=== PATIENT | female | born 1965 | race Caucasian/White ===

== ENCOUNTER → 2016-10-28 | Outpatient (CLI) | payer BC ==
[~2016-10-28] MED LIST: ADDERALL XR 3030 MG PO; CYCLOBENZAPRINE5 M3 PO; CYMBALTA20 MG PO; CYMBALTA30 MG PO; DAYPRO600 M1 PO; HYDROCODONE BIT1 T11 PO; MIRAPEX1 MG PO; Motrin,Rufen800 MG PO; PREDNICOT20 MG PO; PRILOSEC20 M1 PO; TESSALON PERLE200 MG PO; VICO75300 PO; ZITHROMAX Z PA250 MG PO
[2016-10-28 09:22] LABS: BASO # 0.1 10*3/uL (0.0-0.1); BASO % 0.8 % (0.0-1.0); EOS # 0.2 10*3/uL (0.0-0.4); EOS % 2.2 % (1.0-4.0); HEMATOCRIT 37.2 % (37.0-47.0); HEMOGLOBIN 12.2 g/dl (12.0-16.0); LYMPH # 2.2 10*3/uL (1.3-4.4); LYMPH % 23.7 % (27.0-41.0); MEAN CELL VOLUME 89.2 fl (81.0-99.0); MEAN CORPUSCULAR HGB 29.3 pg (27.0-31.0); MEAN CORPUSCULAR HGB CONC 32.8 g/dl (33.0-37.0); MEAN PLATELET VOLUME 9.6 fl (9.6-12.3); MONO # 0.5 10*3/uL (0.1-1.0); MONO % 5.6 % (3.0-9.0); NEUT # 6.1 10*3/uL (2.3-7.9); NEUT % 67.5 % (47.0-73.0); PLATELET COUNT AUTOMATED 302 10*3/uL (130-400); RED BLOOD COUNT 4.17 10*6/uL (4.10-5.10); RED CELL DISTRI WIDTH 14.6 % (0-14.5); WHITE BLOOD COUNT 9.1 10*3/uL (4.8-10.8)
== END | disposition home or self-care (01) ==
LOC: LAB 07:57
PROVIDERS: Obstetrics & Gynecology
DX: N83.209 Unspecified ovarian cyst, unspecified side (principal)

== ENCOUNTER → 2016-11-03 | Day surgery (SDC) | payer BC ==
[2016-10-28 08:10] VITALS: BP 125/74
[~2016-11-03] VITALS: Ht 160 cm; Wt 97.5 kg
[2016-11-03] VITALS (10 sets, daily range): BP systolic 104–154; BP diastolic 46–87
[~2016-11-03] MED LIST changes: +PERCOCET 325 MG1 TA2 PO
--- NOTE | ~2016-11-03 | O ---
[place], [place] OPERATIVE NOTE NAME: AARON CRAMER UNIT #: [id number] ROOM: DOCTOR: JAIRO JOE MD BIRTHDATE: [birth year] DOS: 11/03/2016 PREOPERATIVE DIAGNOSES: Left lower quadrant pain, small left ovarian cyst per ultrasound and strong family history of breast cancer and ovarian cancer. The patient also had recommended by ca prophylactic BSO while we were in performing this laparoscopy, but she did not want to proceed with this procedure. POSTOPERATIVE DIAGNOSES: Left lower quadrant pain, small left ovarian cyst per ultrasound and strong family history of breast cancer and ovarian cancer. The patient also had recommended by me prophylactic BSO while we were in performing this laparoscopy, but she did not want to proceed with this procedure with a normal pelvis noted, no significant left ovarian cyst noted at all, no other atypicalities noted. OPERATION: The operation itself was diagnostic laparoscopy. SURGEON: Dr. Jairo Johns. ANESTHESIA: General. ESTIMATED BLOOD LOSS: Minimal. REPLACEMENTS: IV fluids and Toradol. COMPLICATIONS: There were no complications. CONDITION: The patient's condition to recovery stable. OPERATIVE SUMMARY: The patient was taken to the operating room in supine position, general anesthesia, endotracheal intubation, lithotomy position, prepped and draped in routine manner. Jones catheter was placed to straight drain. The cervix was grasped with tenaculum and a cervical manipulator placed. Infraumbilical and suprapubic incisions were made after placing a 5 mm trocar sleeve and laparoscope through the infraumbilical incision, under direct visualization, we proceeded with CO2 insufflation. Once this was completed, we placed another 5 mm trocar and sleeve through the suprapubic incision and probed. Systematic examination of the pelvis revealed the anterior cul-de-sac to be normal. The uterus itself was overall normal in size, configuration, and mobility. The posterior cul-de-sac and all supporting structures in the posterior cul-de-sac were normal. The tubes and ovaries were completely normal, free and mobile with evidence of previous bilateral tubal banding. There was no demonstrable left ovarian cyst. The appendix was visualized as was a partial visualization of the liver. The gallbladder itself was not visualized. The overall view of the ascending and descending colon was normal. There were no atypicalities appreciated anywhere. Once the survey was completed, the suprapubic trocar and trocar sleeve and probe were removed and noting no excessive anterior abdominal bleeding. CO2 was allowed to escape, followed by removal of the infraumbilical trocar sleeve and laparoscope. Each incision was closed with subcuticular Monocryl as well as Steri-Strips and dressings placed. The catheter was removed, urine output throughout the case was clear and about [place], [place] OPERATIVE NOTE NAME: CHIKIS CastellanosA UNIT #: [id number] ROOM: DOCTOR: JAIRO JOE MD BIRTHDATE: [birth year] 200 mL. We then removed the cervical manipulator and the tenaculum. Noting no significant vaginal bleeding the patient was cleaned off, taken out of lithotomy position, awakened, extubated, and transferred to recovery in satisfactory condition with stable vital signs, good hemostasis, and stable sponge and instrument count. JAIRO JOE MD CM:OPRECORD:OPERATIVE NOTE [id number] JAIRO JOE MD 11/03/16 1029 interface
--- NOTE | ~2016-11-03 | WRIGHTHP ---
[place], [place] PATIENT HISTORY AND PHYSICAL EXAM NAME: AARON CRAMER [facility] #: [id number] UNIT #: [id number] ROOM: DOCTOR: JAIRO JOE MD BIRTHDATE: [birth year] DOS: 11/03/2016 DATE OF SURGERY: 11/03/2016 HISTORY OF PRESENT ILLNESS: This patient is an interesting 51-year-old white female, 5, para 2, AB 3 who presented on 10/15/2016 complaining of pain in the left side in her left lower quadrant and in her groin area. She had had an ultrasound done per Dr. Kuhn and the ultrasound did not reveal any atypicalities. The patient did reveal small left ovarian cyst and that was the only finding. The patient had her last menstrual period in December 2015 and is having some hot flashes during the day, but not much at night. The patient also has fibromyalgia, chronic fatigue syndrome. She has a family history interesting in a sister and daughter both breast cancer and maternal aunt with ovarian cancer. There is no known BRCA testing have been completed, but the pattern was very suspicious as we discussed. She also has a history of kidney stones, but her primary complaint on the day of the visit was left lower quadrant pain. She feels it is getting worse, accentuated by her efforts to exercise, increased activity, etc. Her PUF questionnaire was only 9 as well. To that end, I reviewed with the patient the risks and benefits, indications, potential complications and alternatives of diagnostic laparoscopy. She did state understanding and signed a consent. However, we also discussed her family history and based on her age factor, she is having menopausal symptoms, etc. I did suggest that regardless of intraoperative findings, bilateral salpingo-oophorectomy might well be performed for prophylaxis at least against ovarian cancer. The patient stated her understanding to this information and signed a consent. She has since contacted the office on several occasions inquiring about hysterectomy and then debating back and forth in regard to bilateral salpingo-oophorectomy. The patient was offered an appointment and appointment upon was actually made on October 29, but the patient did not show for the appointment. At this time, diagnostic laparoscopy and possible bilateral salpingo-oophorectomy were recommended what are signed for and scheduled for and we will proceed accordingly on November 03. PAST MEDICAL HISTORY: Reveals a history of trouble concentrating for which she takes Adderall 30 mg daily, restless legs syndrome, takes Mirapex daily. She has pain from these issues and uses Vicodin 7.5/300 one tablet daily as needed. She also has acid reflux and takes Prilosec daily. The patient has had 2 vaginal deliveries. She has had a negative colonoscopy in 2017. She has had 3 miscarriages. She has had a tubal ligation, history of kidney stones as I mentioned. SOCIAL HISTORY: She does not smoke or drink. REVIEW OF SYSTEMS: Otherwise stable. FAMILY HISTORY: Reveals father from heart disease and cancer, but she does not know what type of cancer. Mother is with diagnosis of diabetes, hypertension, heart disease. The patient's mother also had kidney failure. The patient does have a family history as I mentioned above of uterine and breast cancer. She states that her sister also had cervical cancer as well. [place], [place] PATIENT HISTORY AND PHYSICAL EXAM NAME: AARON CRAMER UNIT #: [id number] ROOM: DOCTOR: JAIRO JOE MD BIRTHDATE: [birth year] PHYSICAL EXAMINATION: GENERAL: Reveals a pleasant white female. VITAL SIGNS: She is 5 feet 3 inches, 219 pounds, BMI is 39. Blood pressure 116/80 and she is in no apparent distress. HEENT: Within normal limits. NECK: Within normal limits. LUNGS: Within normal limits. CARDIAC: Within normal limits. BREASTS: Within normal limits. ABDOMEN: Within normal limits. EXTREMITIES: Grossly intact. NEUROLOGIC: Grossly intact. GENITOURINARY: External genitalia, vagina and cervix are all normal. No laxity is noted vaginally. Uterus is anteverted and anteflexed, normal size, configuration, nontender, and mobile. The bladder is slightly tender to palpation. The adnexa were negative for any significant mass, but BMI precludes an adequate pelvic exam. The patient does have a tender left anterior iliac crest to palpation. There is no history of hip or pelvic bone abnormalities. RECTAL: Negative. Stool heme test negative. ASSESSMENT: The patient with chronic left adnexal pain, a small left ovarian cyst and positive family history for breast cancer as well as ovarian and cervical disease. To that end, the patient will undergo diagnostic laparoscopy, possible bilateral salpingo-oophorectomy on 11/03/2016. Once this evaluation is complete, we will then consider a KCl challenge test in the office. The patient stated understanding to this information and will undergo the surgery on 11/03/2016. JAIRO JOE MD CM:HISPHYS:PATIENT HISTORY AND PHYSICAL EXAMINATION [id number] JAIRO JOE MD 10/29/16 2318 interface
== END | disposition home or self-care (01) ==
LOC: SDC 10-27 12:30
DX: R10.32 Left lower quadrant pain (principal); K21.9 Gastro-esophageal reflux disease without esophagitis; Z80.3 Family history of malignant neoplasm of breast; Z80.41 Family history of malignant neoplasm of ovary; Z82.49 Family history of ischemic heart disease and other diseases of the circulatory system; Z83.3 Family history of diabetes mellitus; F32.9 Major depressive disorder, single episode, unspecified; Z98.51 Tubal ligation status; Z79.899 Other long term (current) drug therapy; Z87.891 Personal history of nicotine dependence

== ENCOUNTER 2017-03-03 19:04 | Inpatient (IN) | payer BC ==
[2017-03-03] VITALS (7 sets, daily range): BP systolic 84–132; BP diastolic 45–71
[~2017-03-03] VITALS: Ht 160 cm; Wt 99.0 kg
[2017-03-03 19:54] LABS: BASO # 0.1 10*3/uL (0.0-0.1); BASO % 0.5 % (0.0-1.0); EOS # 0.2 10*3/uL (0.0-0.4); EOS % 1.7 % (1.0-4.0); HEMATOCRIT 38.2 % (37.0-47.0); HEMOGLOBIN 12.6 g/dl (12.0-16.0); LYMPH # 1.9 10*3/uL (1.3-4.4); MEAN CELL VOLUME 86.6 fl (81.0-99.0); MEAN CORPUSCULAR HGB 28.6 pg (27.0-31.0); MEAN PLATELET VOLUME 9.7 fl (9.6-12.3); MONO # 0.4 10*3/uL (0.1-1.0); MONO % 3.8 % (3.0-9.0); NEUT # 8.5 10*3/uL (2.3-7.9); NEUT % 76.5 % (47.0-73.0); PLATELET COUNT AUTOMATED 338 10*3/uL (130-400); RED BLOOD COUNT 4.41 10*6/uL (4.10-5.10); RED CELL DISTRI WIDTH 14.6 % (0-14.5); WHITE BLOOD COUNT 11.1 10*3/uL (4.8-10.8)
--- NOTE | 2017-03-03 19:57 | NUR ---
LAB REPORTS LACTIC ACID OF 2.9 AT THIS TIME.
[2017-03-03 20:07] LABS: ALBUMIN 2.8 gm/dl (3.1-4.5); CREATININE 1.19 mg/dL (0.55-1.02); POTASSIUM 3.5 mmol/L (3.5-5.1); TOTAL PROTEIN 7.9 gm/dL (6.4-8.2)
[2017-03-03 20:11] LABS: BILIRUBIN NEGATIVE (NEGATIVE); BLOOD 3+ (NEGATIVE); CLARITY CLOUDY (CLEAR); COLOR YELLOW (YELLOW); GLUCOSE NEGATIVE (NEGATIVE); KETONE NEGATIVE (NEGATIVE); LEUKO ESTERASE 1+ (NEGATIVE); NITRITE NEGATIVE (NEGATIVE); PH 5.5 (5.0-9.0)
[2017-03-03 20:24] LABS: BACTERIA 1+; EPITHELIAL CELLS 30-35; RBC TNTC rbc/hpf (0-2); WBC 21-30 wbc/hpf (0-5)
--- NOTE | 2017-03-03 22:02 | NUR ---
PT STATES HER PAIN IN RELIEVED FROM TORADOL.
--- NOTE | 2017-03-03 22:11 | NUR ---
LAB CALLED WITH CRITICAL LACTIC ACID OF 2.8. PHYSICIAN AWARE.
--- NOTE | 2017-03-03 23:05 | NUR ---
A 51, admitted to 5E, under the services of NITIN Banks DO with a diagnosis of UTI. Chief complaint is URINARY SYMPTOMS. Patient arrived via ambulatory from ER. Monitor applied. Initial assessment completed. Vital signs taken and recorded. NITIN BANKS DO notified of admission to the unit. Orders received. See assessment for past medical history, medications and allergies. Patient and/or family oriented to unit. visitation policy reviewed. Clothing/patient valuable form completed. LEXIE BERMEO L
--- NOTE | 2017-03-03 23:10 | NUR ---
NOTIFIED DR. JALLOH AT THIS TIME OF PTS. CRITICAL TROPONIN LEVEL OF 0.049. WE WILL CONTINUE TO MONITOR, NO NEW ORDERS AT THIS TIME.
--- NOTE | 2017-03-03 23:11 | NUR ---
HERE TO SEE PATIENT.
[2017-03-03] MEDS ORDERED: CYCLOBENZAPRINE10 MG PO (23:27)
[2017-03-03] MEDS ORDERED: VICODIN ES 7.51 EACH PO (23:29)
--- NOTE | 2017-03-03 23:35 | NUR ---
MED REC UP TO DATE PER PT RECALL
[2017-03-03] MEDS ORDERED: NORCO 7.5-3251 EACH PO (23:43)
[2017-03-03] MEDS ORDERED: SEPTDS PO (23:44)
[2017-03-03] MEDS ORDERED: ATIVAN1 MG PO (23:45)
[2017-03-03] MEDS ORDERED: FLOMAX0.4 MG PO (23:47)
[2017-03-03] MEDS ORDERED: PREDNISONE20 M1 PO (23:49)
--- NOTE | 2017-03-03 23:50 | NUR ---
PATIENT HAD PRESCRIPTION BOTTLES IN [facility]. MED REC UPDATED TO INCLUDE THOSE HOME MEDS.
[2017-03-04] VITALS (7 sets, daily range): BP systolic 93–124; BP diastolic 50–66
--- NOTE | 2017-03-04 00:15 | NUR ---
HERE AT THIS TIME. VERIFIED PATIENT'S HOME SUPPLY OF MIRAPEX IN UNMARKED CONTAINER. INSTRUCTED TO GIVE ONE DOSE (1 TABLET) OF PATIENT'S HOME MIRAPEX BECAUSE MEDICATION IS UNAVAILABLE FROM PHARMACY AT THIS TIME.
--- NOTE | 2017-03-04 00:19 | NUR ---
PO MIRAPEX ADMINISTERED AT THIS TIME PER DR. JALLOH'S ORDERS.
[2017-03-04 04:46] LABS: BASO # 0.1 10*3/uL (0.0-0.1); BASO % 0.4 % (0.0-1.0); EOS # 0.3 10*3/uL (0.0-0.4); EOS % 1.8 % (1.0-4.0); LYMPH # 3.4 10*3/uL (1.3-4.4); LYMPH % 24.8 % (27.0-41.0); MEAN CELL VOLUME 88.4 fl (81.0-99.0); MEAN CORPUSCULAR HGB 28.9 pg (27.0-31.0); MEAN CORPUSCULAR HGB CONC 32.7 g/dl (33.0-37.0); MEAN PLATELET VOLUME 9.6 fl (9.6-12.3); MONO % 7.2 % (3.0-9.0); NEUT # 8.9 10*3/uL (2.3-7.9); NEUT % 65.4 % (47.0-73.0); PLATELET COUNT AUTOMATED 291 10*3/uL (130-400); RED BLOOD COUNT 3.53 10*6/uL (4.10-5.10); RED CELL DISTRI WIDTH 14.8 % (0-14.5); WHITE BLOOD COUNT 13.5 10*3/uL (4.8-10.8)
[2017-03-04 04:47] LABS: HEMATOCRIT 31.2 % (37.0-47.0); HEMOGLOBIN 10.2 g/dl (12.0-16.0)
[2017-03-04 04:57] LABS: BUN 14 mg/dl (7-24); CHLORIDE 110 mmol/L (98-107); CREATININE 0.86 mg/dL (0.55-1.02); POTASSIUM 3.5 mmol/L (3.5-5.1); SODIUM 141 mmol/L (136-145)
[2017-03-04 05:03] LABS: PHOSPHOROUS 3.4 mg/dL (2.5-4.9)
--- NOTE | 2017-03-04 05:19 | NUR ---
SPOKE TO REGARDING PATIENT'S COMPLAINTS OF HEARTBURN. NEW ORDER RECEIVED.
--- NOTE | 2017-03-04 05:35 | NUR ---
PO TYLENOL AND CHEWABLE TUMS ADMINISTERED PER ORDER FOR C/O HEADACHE AND HEARTBURN. WILL MONITOR EFFECTIVENESS. CALL LIGHT LEFT IN REACH.
--- NOTE | 2017-03-04 08:20 | NUR ---
MEDICATED WITH NORCO FOR HEADACHE SHE RATES A 6 ON THE PAIN SCALE.
--- NOTE | 2017-03-04 08:32 | NUR ---
PATIENT RESTING WITH NO COMPLAINTS.
--- NOTE | 2017-03-04 09:00 | NUR ---
It Coordinator in to talk to patient. Patient states lives at home with . There are few steps in the home. Physician: keely melton Pharmacy: [facility] Home health services: none Patient's level of ADLs: INDEPENDENT Patient has working utilities: all working DME: none Follow-up physician's appointment after d/c: will be made by hospitalist nurse director upon discharge Does patient want to access PORTAL?: no Discharge plan discussed with patient, patient lives at home with , she is independent in adls and ambualtion, works, drives, patient denies any home needs at this time. CHITRA FIGUEREDO
--- NOTE | 2017-03-04 10:00 | NUR ---
NO FURTHER COMPLAINTS OF PAIN.
--- NOTE | 2017-03-04 11:44 | NUR ---
SPOKE WITH DR. AKNG REGARDING FLU SHOT, HE REQUESTED THAT IT BE GIVEN UPON DISCHARGE.
--- NOTE | 2017-03-04 17:27 | NUR ---
PATIENT MEDICATED WITH NORCO FOR HEADACHE SHE RATES A 6 ON THE PAIN SCALE.
--- NOTE | 2017-03-04 19:45 | NUR ---
PATIENT IS AWAKE, ALERT AND ORIENTED X3. PLEASANT AND COOPERATIVE . ROOM AIR. ABDOMEN IS SOFT AND NON-TENDER UPON PALPATION, BOWEL SOUNDS ARE NORMOACTIVE X 4 QUADS. NO EDEMA TO BLE, PPP. PATIENT DENIES ANY PAIN OR DISCOMFORT AT THE PRESENT TIME. CALL LIGHT IS IN REACH.
[2017-03-05] VITALS: BP 100/48
--- NOTE | 2017-03-05 06:28 | NUR ---
PATIENT AROUSES EASILY FOR THIS MOENING. ALERT AND ORIENTED X3. PLEASANT AND COOPERATIVE. DENIES ANY NEEDS AT THE PRESENT TIME. CALL LIGHT IS IN REACH.
[2017-03-05 06:52] LABS: BASO % 0.3 % (0.0-1.0); EOS # 0.1 10*3/uL (0.0-0.4); EOS % 1.2 % (1.0-4.0); HEMOGLOBIN 10.2 g/dl (12.0-16.0); LYMPH # 2.7 10*3/uL (1.3-4.4); LYMPH % 22.5 % (27.0-41.0); MEAN CELL VOLUME 88.1 fl (81.0-99.0); MEAN CORPUSCULAR HGB CONC 32.9 g/dl (33.0-37.0); MEAN PLATELET VOLUME 9.8 fl (9.6-12.3); MONO # 0.8 10*3/uL (0.1-1.0); MONO % 6.5 % (3.0-9.0); NEUT # 8.2 10*3/uL (2.3-7.9); NEUT % 69.1 % (47.0-73.0); PLATELET COUNT AUTOMATED 296 10*3/uL (130-400); RED BLOOD COUNT 3.52 10*6/uL (4.10-5.10); RED CELL DISTRI WIDTH 14.3 % (0-14.5); WHITE BLOOD COUNT 11.9 10*3/uL (4.8-10.8)
[2017-03-05 07:37] LABS: BUN 8 mg/dl (7-24); CHLORIDE 107 mmol/L (98-107); CREATININE 0.64 mg/dL (0.55-1.02); POTASSIUM 4.3 mmol/L (3.5-5.1); SODIUM 139 mmol/L (136-145)
[2017-03-05 08:00] VITALS: BP 119/57
--- NOTE | 2017-03-05 10:23 | NUR ---
NORCO 5/325 MG GIVEN FOR C/O GENERALIZED BACK PAIN,11/24.
[2017-03-05 12:00] VITALS: BP 114/54
[2017-03-05 16:00] VITALS: BP 107/53
[2017-03-05 20:00] VITALS: BP 109/62
--- NOTE | 2017-03-05 20:00 | NUR ---
PATIENT IS AWAKE, ALERT AND ORIENTED X3. PLEASANT AND COOPERATIVE . LUNGS ARE CLEAR AND DIMINISHED THROUGHOUT LUNGFIELDS. ROOM AIR. ABDOMEN IS SOFT AND NON-TENDER UPON PALPATION, BOWEL SOUNDS ARE NORMOACTIVE X 4 QUADS. NO EDEMA TO BLE, PPP. PATIENT DENIES ANY PAIN OR DISCOMFORT. CALL LIGHT IS IN REACH.
--- NOTE | 2017-03-05 21:18 | NUR ---
PATIENT STATES THAT SHE HAS A STIFF NECK AND THAT THE BED AND PILLOWS HERE ARE CAUSING HER GREAT DISCOMFORT. SPOKE WITH DR. STEWART AND REQUESTED THE USE OF A K-PAD PATIENT STATES THAT SHE WOULD USE AHEATING PAD AT HOME. DR. STEWART STATES THAT THIS IS OK.K-PAD SET UP FOR THIS PATIENT AT THIS TIME.
--- NOTE | 2017-03-05 22:00 | NUR ---
PER PATIENT K-PAD IS HELPING HER STIFFNESS AND PAIN IN HER NECK AT THIS TIME. CALL LIGHT IS IN REACH.
[2017-03-06] VITALS: BP 121/48
--- NOTE | 2017-03-06 06:06 | NUR ---
PATIENT RESTING IN BED WITH EYES CLOSED BILATERALLY. RESPIRATIONS ARE EASY AND REGULAR. NO S/S OF DISCOMFORT. CALL LIGHT IS IN REACH.
[2017-03-06 07:35] LABS: BASO % 0.3 % (0.0-1.0); EOS # 0.1 10*3/uL (0.0-0.4); EOS % 0.7 % (1.0-4.0); HEMATOCRIT 32.7 % (37.0-47.0); HEMOGLOBIN 10.6 g/dl (12.0-16.0); LYMPH # 2.2 10*3/uL (1.3-4.4); LYMPH % 22.2 % (27.0-41.0); MEAN CELL VOLUME 88.6 fl (81.0-99.0); MEAN CORPUSCULAR HGB 28.7 pg (27.0-31.0); MEAN CORPUSCULAR HGB CONC 32.4 g/dl (33.0-37.0); MEAN PLATELET VOLUME 10.1 fl (9.6-12.3); MONO # 0.4 10*3/uL (0.1-1.0); MONO % 4.5 % (3.0-9.0); NEUT # 7.1 10*3/uL (2.3-7.9); NEUT % 71.7 % (47.0-73.0); PLATELET COUNT AUTOMATED 344 10*3/uL (130-400); RED BLOOD COUNT 3.69 10*6/uL (4.10-5.10); RED CELL DISTRI WIDTH 14.2 % (0-14.5); WHITE BLOOD COUNT 9.9 10*3/uL (4.8-10.8)
[2017-03-06 08:00] VITALS: BP 147/73
[2017-03-06 08:01] LABS: BUN 9 mg/dl (7-24); CHLORIDE 105 mmol/L (98-107); CREATININE 0.67 mg/dL (0.55-1.02); POTASSIUM 4.7 mmol/L (3.5-5.1); SODIUM 139 mmol/L (136-145)
[2017-03-06] MEDS ORDERED: SEPTDS PO (11:33)
[2017-03-06 11:58] VITALS: BP 141/66
--- NOTE | 2017-03-06 12:32 | NUR ---
Discharge instructions reviewed with patient/family. Patient receptive and verbalizes understanding. Follow-up care arranged. Written instructions given to patient/family. JASKARAN CHACON
== END 2017-03-06 12:32 | disposition home or self-care (01) | DRG 871 ==
LOC: ED 19:04 → 5E 21:50 → EDHOLD 21:50 → 5E 22:24
PROVIDERS: Emergency Medicine; Internal Medicine; Student in an Organized Health Care Education/Training Program; ADMIT Internal Medicine
DX: A41.9 Sepsis, unspecified organism (principal); N17.0 Acute kidney failure with tubular necrosis; N39.0 Urinary tract infection, site not specified; E44.0 Moderate protein-calorie malnutrition; R65.20 Severe sepsis without septic shock; N20.0 Calculus of kidney; R73.9 Hyperglycemia, unspecified; F90.9 Attention-deficit hyperactivity disorder, unspecified type; G25.81 Restless legs syndrome; K21.9 Gastro-esophageal reflux disease without esophagitis; M79.7 Fibromyalgia; M19.90 Unspecified osteoarthritis, unspecified site; G89.29 Other chronic pain; M54.9 Dorsalgia, unspecified; Z88.8 Allergy status to other drugs, medicaments and biological substances; Z98.51 Tubal ligation status; Z83.3 Family history of diabetes mellitus; Z80.9 Family history of malignant neoplasm, unspecified; Z87.891 Personal history of nicotine dependence; Z82.49 Family history of ischemic heart disease and other diseases of the circulatory system; Z84.1 Family history of disorders of kidney and ureter; Z79.899 Other long term (current) drug therapy

== ENCOUNTER 2017-03-08 20:31 | Inpatient (IN) | payer BC ==
[~2017-03-08] VITALS: Ht 160 cm; Wt 97.7 kg
[~2017-03-08 20:31] MED LIST changes: +ATIVAN1 MG PO; +CYCLOBENZAPRINE10 MG PO; +FLOMAX0.4 MG PO; +NORCO 7.5-3251 EACH PO; +PREDNISONE20 M1 PO; +SEPTDS PO; +VICODIN ES 7.51 EACH PO
[2017-03-08 20:43] VITALS: BP 141/96
[2017-03-08 20:57] LABS: BILIRUBIN NEGATIVE (NEGATIVE); BLOOD TRACE-LYSED (NEGATIVE); CLARITY CLEAR (CLEAR); COLOR YELLOW (YELLOW); GLUCOSE NEGATIVE (NEGATIVE); KETONE NEGATIVE (NEGATIVE); LEUKO ESTERASE TRACE (NEGATIVE); NITRITE NEGATIVE (NEGATIVE); SPECIFIC GRAVITY <= 1.005 (1.005-1.030); UROBILINOGEN 0.2 E.U./dl (0.2-1.0)
[2017-03-08 21:05] LABS: BACTERIA TRACE; EPITHELIAL CELLS 0-2
[2017-03-08 21:46] LABS: BASO # 0.1 10*3/uL (0.0-0.1); BASO % 0.4 % (0.0-1.0); EOS # 0.2 10*3/uL (0.0-0.4); EOS % 0.9 % (1.0-4.0); HEMATOCRIT 37.8 % (37.0-47.0); HEMOGLOBIN 12.3 g/dl (12.0-16.0); LYMPH # 2.5 10*3/uL (1.3-4.4); LYMPH % 14.1 % (27.0-41.0); MEAN CELL VOLUME 87.3 fl (81.0-99.0); MEAN CORPUSCULAR HGB 28.4 pg (27.0-31.0); MEAN CORPUSCULAR HGB CONC 32.5 g/dl (33.0-37.0); MEAN PLATELET VOLUME 9.3 fl (9.6-12.3); MONO # 0.9 10*3/uL (0.1-1.0); MONO % 5.1 % (3.0-9.0); NEUT # 13.8 10*3/uL (2.3-7.9); NEUT % 78.8 % (47.0-73.0); PLATELET COUNT AUTOMATED 473 10*3/uL (130-400); RED BLOOD COUNT 4.33 10*6/uL (4.10-5.10); RED CELL DISTRI WIDTH 14.3 % (0-14.5); WHITE BLOOD COUNT 17.5 10*3/uL (4.8-10.8)
[2017-03-08 22:02] LABS: ALBUMIN 3.3 gm/dl (3.1-4.5); CREATININE 1.29 mg/dL (0.55-1.02); POTASSIUM 4.1 mmol/L (3.5-5.1); TOTAL PROTEIN 8.3 gm/dL (6.4-8.2)
[2017-03-09] VITALS (7 sets, daily range): BP systolic 98–148; BP diastolic 50–76
--- NOTE | 2017-03-09 00:02 | NUR ---
REPORT CALLED TO RUSSELL GREER
--- NOTE | 2017-03-09 00:40 | NUR ---
A 51, admitted to , under the services of TAM Campo DO with a diagnosis of SPESIS, ABDOMINAL PAIN. Chief complaint is ABDOMINAL PAIN. Patient arrived via wheel chair from ER. Monitor applied. Initial assessment completed. Vital signs taken and recorded. TAM CAMPO DO notified of admission to the unit. Orders received. See assessment for past medical history, medications and allergies. Patient and/or family oriented to unit. [facility] visitation policy reviewed. Clothing/patient valuable form completed. FALLON ROACH
--- NOTE | 2017-03-09 01:08 | NUR ---
MED REC UP TO DATE, PER PATIENT.
--- NOTE | 2017-03-09 01:46 | NUR ---
A 51, admitted to 5E, under the services of TAM Campo DO with a diagnosis of SEVERE SEPSIS, ABDOMINAL PAIN. Chief complaint is UTI SYMPTOMS. Patient arrived via bed from ER. Monitor applied. Initial assessment completed. Vital signs taken and recorded. TAM CAMPO DO notified of admission to the unit. Orders received. See assessment for past medical history, medications and allergies. Patient and/or family oriented to unit. [address] visitation policy reviewed. Clothing/patient valuable form completed. RUSSELL CHERY
--- NOTE | 2017-03-09 03:02 | NUR ---
SLEEPING. RESP EASY AND NONLABORED ON ROOM AIR. NO DISTRESS NOTED. CM INTACT. IVF INFUSING PER ORDER WITHOUT DIFFICULTY. CALL LIGHT IN REACH. WILL CONTINUE TO MONITOR.
[2017-03-09 06:11] LABS: BASO # 0.1 10*3/uL (0.0-0.1); BASO % 0.4 % (0.0-1.0); EOS # 0.2 10*3/uL (0.0-0.4); EOS % 1.4 % (1.0-4.0); HEMATOCRIT 34.5 % (37.0-47.0); LYMPH # 2.4 10*3/uL (1.3-4.4); LYMPH % 15.4 % (27.0-41.0); MEAN CELL VOLUME 89.4 fl (81.0-99.0); MEAN CORPUSCULAR HGB 28.5 pg (27.0-31.0); MEAN CORPUSCULAR HGB CONC 31.9 g/dl (33.0-37.0); MEAN PLATELET VOLUME 9.6 fl (9.6-12.3); MONO # 0.9 10*3/uL (0.1-1.0); NEUT % 76.3 % (47.0-73.0); PLATELET COUNT AUTOMATED 384 10*3/uL (130-400); RED BLOOD COUNT 3.86 10*6/uL (4.10-5.10); RED CELL DISTRI WIDTH 14.7 % (0-14.5); WHITE BLOOD COUNT 15.7 10*3/uL (4.8-10.8)
--- NOTE | 2017-03-09 06:12 | NUR ---
PT REFUSING TO DRINK BARIUM FOR CT ABD/PELVIS. EDUCATION PROVIDED. PT STILL REFUSING.
[2017-03-09 06:19] LABS: ALBUMIN 2.4 gm/dl (3.1-4.5); ALKALINE PHOSPHATASE 87 U/L (45-117); BUN 19 mg/dl (7-24); CHLORIDE 105 mmol/L (98-107); CREATININE 1.03 mg/dL (0.55-1.02); PHOSPHOROUS 3.9 mg/dL (2.5-4.9); POTASSIUM 4.2 mmol/L (3.5-5.1); SGOT/AST 16 IU/L (3-35); SGPT/ALT 33 U/L (12-78); SODIUM 139 mmol/L (136-145); TOTAL PROTEIN 6.6 gm/dL (6.4-8.2)
[2017-03-09 06:30] LABS: ACT PARTIAL THROMBO TIME 23.1 SECONDS (20.8-31.5); INTERNATIONAL NORM RATIO 0.9 (2.0-3.5)
--- NOTE | 2017-03-09 11:29 | NUR ---
PATIENT MEDICATED WITH PRN PO DULCOLAX FOR CONSTIPATION, TYLENOL PO FOR HEAD AND BACK ACHES, AND PRN IV ZOFRAN FOR NAUSEA.
--- NOTE | 2017-03-09 12:09 | NUR ---
PRN PO TYLENOL AND IV ZOFRAN EFFECTIVE FOR HEAD AND BACK ACHES AND NAUSEA.
--- NOTE | 2017-03-09 12:58 | NUR ---
DR. GILL'S OFFICE STAFF NOTIFIED OF CONSULT RE: PYELONEPHRITIS/REPEATED UTI'S.
--- NOTE | 2017-03-09 16:08 | NUR ---
NORCO GIVEN FOR C/O BACK PAIN. RATES 6/10 ON PAIN SCALE. WILL MONITOR.
--- NOTE | 2017-03-09 17:10 | NUR ---
AYANA EFFECTIVE PER PT.
--- NOTE | 2017-03-09 20:00 | NUR ---
ASSUMED CARE OF PATIENT. ASSESSMENT COMPLETE. RESTING IN BED. NO VOICED COMPLAINTS. VISITOR AT BEDSIDE. CALL LIGHT IN REACH. WILL CONTINUE TO MONITOR.
--- NOTE | 2017-03-09 23:01 | NUR ---
MEDICATED WITH PRN NORCO FOR C/O ABDOMINAL PAIN. RATES 11/24
--- NOTE | 2017-03-09 23:19 | NUR ---
PT RECEIVED NORCO FOR FEVER OF 100.6 VIA ORAL THERMOMETER.
--- NOTE | 2017-03-09 23:48 | NUR ---
MEDICATED WITH PRN TYLENOL FOR TEMP 100.3
[2017-03-10] VITALS: BP 106/50
--- NOTE | 2017-03-10 | NUR ---
PT SEEMS TO BE RESTING MORE COMFORTABLY POST ADMINISTRATION OF NORCO AND TYLENOL.
--- NOTE | 2017-03-10 02:00 | NUR ---
SLEEPING. RESP EASY AND NONLABORED ON ROOM AIR. NO DISTRESS NOTED. CALL LIGHT IN REACH. WILL CONTINUE TO MONITOR.
[2017-03-10 06:50] LABS: BASO # 0.1 10*3/uL (0.0-0.1); BASO % 0.4 % (0.0-1.0); EOS # 0.2 10*3/uL (0.0-0.4); EOS % 1.5 % (1.0-4.0); HEMATOCRIT 32.6 % (37.0-47.0); HEMOGLOBIN 10.2 g/dl (12.0-16.0); LYMPH % 21.1 % (27.0-41.0); MEAN CELL VOLUME 89.6 fl (81.0-99.0); MEAN CORPUSCULAR HGB CONC 31.3 g/dl (33.0-37.0); MEAN PLATELET VOLUME 9.7 fl (9.6-12.3); MONO # 0.9 10*3/uL (0.1-1.0); MONO % 6.1 % (3.0-9.0); NEUT # 9.9 10*3/uL (2.3-7.9); NEUT % 70.3 % (47.0-73.0); PLATELET COUNT AUTOMATED 364 10*3/uL (130-400); RED BLOOD COUNT 3.64 10*6/uL (4.10-5.10); RED CELL DISTRI WIDTH 14.8 % (0-14.5); WHITE BLOOD COUNT 14.1 10*3/uL (4.8-10.8)
--- NOTE | 2017-03-10 07:25 | NUR ---
NORCO GIVEN FOR C/O BACK PAIN. RATES 7/10 ON PAIN SCALE. WILL MONITOR.
[2017-03-10 07:26] LABS: ALBUMIN 2.4 gm/dl (3.1-4.5); CHLORIDE 104 mmol/L (98-107); POTASSIUM 4.1 mmol/L (3.5-5.1); SODIUM 138 mmol/L (136-145)
[2017-03-10 07:31] LABS: ALKALINE PHOSPHATASE 82 U/L (45-117); BUN 9 mg/dl (7-24); CREATININE 0.73 mg/dL (0.55-1.02); SGOT/AST 12 IU/L (3-35); SGPT/ALT 28 U/L (12-78); TOTAL PROTEIN 6.4 gm/dL (6.4-8.2)
[2017-03-10 08:00] VITALS: BP 103/55
--- NOTE | 2017-03-10 08:30 | NUR ---
AYANA EFFECTIVE PER PT.
--- NOTE | 2017-03-10 09:00 | NUR ---
Nba Player in to talk to patient. Patient states lives at home with . There are few steps in the home. Physician: keely melton Pharmacy: [facility] Home health services: none Patient's level of ADLs: INDEPENDENT Patient has working utilities: all working DME: none Follow-up physician's appointment after d/c: will be made by hospitalist nurse director upon discharge Does patient want to access PORTAL?: no Discharge plan discussed with patient patient lives at home with , states she is independent in adls and ambulation drives, patient states she will be going home and denies any home needs. CHITRA FIGUEREDO
[2017-03-10 12:00] VITALS: BP 126/51
[2017-03-10 16:00] VITALS: BP 136/44
[2017-03-10 20:00] VITALS: BP 129/66
--- NOTE | 2017-03-10 20:00 | NUR ---
ASSUMED CARE OF PATIENT. ASSESSMENT COMPLETE. RESTING IN BED. NO VOICED COMPLAINTS. CALL LIGHT IN REACH. WILL CONTINUE TO MONITOR.
--- NOTE | 2017-03-10 21:00 | NUR ---
PT RECEIVED NORCO FOR FEVER AND GENERALIZED ACHES.
[2017-03-11] VITALS: BP 104/44
[2017-03-11 04:00] VITALS: BP 122/80
--- NOTE | 2017-03-11 06:22 | NUR ---
PT RECEIVED NORCO FOR BACK PAIN RATED 7/10.
[2017-03-11 06:50] LABS: BASO # 0.1 10*3/uL (0.0-0.1); BASO % 0.4 % (0.0-1.0); EOS # 0.2 10*3/uL (0.0-0.4); EOS % 1.1 % (1.0-4.0); HEMATOCRIT 35.5 % (37.0-47.0); HEMOGLOBIN 11.4 g/dl (12.0-16.0); LYMPH # 2.7 10*3/uL (1.3-4.4); LYMPH % 19.4 % (27.0-41.0); MEAN CELL VOLUME 88.5 fl (81.0-99.0); MEAN CORPUSCULAR HGB 28.4 pg (27.0-31.0); MEAN CORPUSCULAR HGB CONC 32.1 g/dl (33.0-37.0); MEAN PLATELET VOLUME 9.3 fl (9.6-12.3); MONO # 0.8 10*3/uL (0.1-1.0); MONO % 5.9 % (3.0-9.0); NEUT # 10.1 10*3/uL (2.3-7.9); NEUT % 72.6 % (47.0-73.0); PLATELET COUNT AUTOMATED 431 10*3/uL (130-400); RED BLOOD COUNT 4.01 10*6/uL (4.10-5.10); RED CELL DISTRI WIDTH 14.7 % (0-14.5)
--- NOTE | 2017-03-11 06:51 | NUR ---
PT CLAIMS PAIN HAS REDUCED POST NORCO ADMINISTRATION FROM 11/24 TO 09/24.
[2017-03-11 07:14] LABS: ALBUMIN 2.5 gm/dl (3.1-4.5); ALKALINE PHOSPHATASE 96 U/L (45-117); BUN 8 mg/dl (7-24); CHLORIDE 97 mmol/L (98-107); CREATININE 0.81 mg/dL (0.55-1.02); MAGNESIUM 2.1 mg/dL (1.5-2.1); PHOSPHOROUS 2.9 mg/dL (2.5-4.9); POTASSIUM 4.3 mmol/L (3.5-5.1); SGOT/AST 12 IU/L (3-35); SGPT/ALT 24 U/L (12-78); SODIUM 133 mmol/L (136-145); TOTAL PROTEIN 7.8 gm/dL (6.4-8.2)
[2017-03-11 08:00] VITALS: BP 100/50; BP 89/44
--- NOTE | 2017-03-11 08:00 | NUR ---
PT UP AMBULATING IN ROOM, STATES NORCO IS NOW EFFECTIVE FOR RELIEF OF ABDOMINAL PAIN. DISCUSSED PLAN OF CARE AND PLAN FOR TESTING TODAY.
--- NOTE | 2017-03-11 09:00 | NUR ---
case management visits with patient, patient denies any home needs
--- NOTE | 2017-03-11 09:15 | NUR ---
PT COMPLAINING ABOUT NOT RECEIVING HER ADDERALL, SPOKE WITH PHARMACY AND WE DON'T CARRY HER EXTENDED RELEASE, UPDATED PT THAT SHE WOULD NEED TO BRING FROM HOME OR THE DOCTORS WOULD HAVE TO ORDER IMMEDIATE RELEASE. PT VERBAZLIZED UNDERSTANDING, DR TRUJILLO HERE AT THIS TIME AND AWARE.
--- NOTE | 2017-03-11 10:40 | NUR ---
PT DOWN FOR TESTING AT THIS TIME.
[2017-03-11 12:00] VITALS: BP 153/84
--- NOTE | 2017-03-11 12:11 | NUR ---
PT BACK FROM MRI/ULTRASOUND AT THIS TIME.
--- NOTE | 2017-03-11 14:55 | NUR ---
DR MARIE NOTIFIED OF MRA/ ULTRASOUNDS.
[2017-03-11 16:00] VITALS: BP 132/62
--- NOTE | 2017-03-11 17:43 | NUR ---
MEDICATED WITH DOLCOLAX FOR COPMPLAINTS OF CONSTIPATION. WILL MONITOR FOR EFFECTIVENESS.
--- NOTE | 2017-03-11 19:45 | NUR ---
PT. AWAKE, ALERT AND ORIENTED X 3 AT THIS TIME. PT. CURRENTLY DENIES CP, SOB, PAIN, N/V/D. CALL LIGHT WITHIN REACH, BED IN LOWEST POSITION, WHEELS LOCKED. SEE SHIFT ASSESSMENT.
[2017-03-11 20:00] VITALS: BP 126/69
--- NOTE | 2017-03-11 22:26 | NUR ---
PT. GIVEN NORCO AT THIS TIME FOR PAIN 11/24. WILL RE-ASSESS FOR EFFECTIVENESS.
[2017-03-12] VITALS (9 sets, daily range): BP systolic 106–134; BP diastolic 60–80
--- NOTE | 2017-03-12 02:04 | NUR ---
PATIENT RESTING IN BED WITH EYES CLOSED. NO SIGNS OR SYMPTOMS OF DISTRESS NOTED. AROUSES TO VERBAL STIMULI. WILL CONTINUE TO MONITOR. CALL LIGHT IN REACH.
[2017-03-12 06:25] LABS: BASO # 0.1 10*3/uL (0.0-0.1); BASO % 0.3 % (0.0-1.0); EOS # 0.3 10*3/uL (0.0-0.4); EOS % 1.7 % (1.0-4.0); HEMATOCRIT 33.8 % (37.0-47.0); HEMOGLOBIN 11.1 g/dl (12.0-16.0); LYMPH % 26.2 % (27.0-41.0); MEAN CELL VOLUME 87.3 fl (81.0-99.0); MEAN CORPUSCULAR HGB 28.7 pg (27.0-31.0); MEAN CORPUSCULAR HGB CONC 32.8 g/dl (33.0-37.0); MEAN PLATELET VOLUME 9.7 fl (9.6-12.3); MONO # 0.6 10*3/uL (0.1-1.0); MONO % 4.2 % (3.0-9.0); NEUT # 10.1 10*3/uL (2.3-7.9); NEUT % 67.1 % (47.0-73.0); PLATELET COUNT AUTOMATED 482 10*3/uL (130-400); RED BLOOD COUNT 3.87 10*6/uL (4.10-5.10); RED CELL DISTRI WIDTH 14.4 % (0-14.5); WHITE BLOOD COUNT 15.1 10*3/uL (4.8-10.8)
[2017-03-12 07:04] LABS: ALBUMIN 2.6 gm/dl (3.1-4.5); BUN 13 mg/dl (7-24); CHLORIDE 102 mmol/L (98-107); SODIUM 136 mmol/L (136-145)
[2017-03-12 07:07] LABS: ALKALINE PHOSPHATASE 111 U/L (45-117); CREATININE 0.79 mg/dL (0.55-1.02); SGOT/AST 12 IU/L (3-35); SGPT/ALT 26 U/L (12-78); TOTAL PROTEIN 7.7 gm/dL (6.4-8.2)
--- NOTE | 2017-03-12 09:00 | NUR ---
case management visits with patient, patient denies any home needs
--- NOTE | 2017-03-12 11:22 | NUR ---
PT OFF FLOOR TO OR FOR PROCEDURE VIA TRANSPORT.
--- NOTE | 2017-03-12 12:26 | NUR ---
MORPHINE 2 MG GIVEN FOR C/O RIGHT FLANK PAIN FROM PROCEDURE, 02/24.
--- NOTE | 2017-03-12 14:23 | NUR ---
NORCO 5/325 GIVEN FOR C/O R FLANK PAIN,11/24.
--- NOTE | 2017-03-12 14:47 | NUR ---
Patient resting quietly with no c/o discomfort. Respirations easy and regular. Vital signs stable. No overt distress. VOICES NO NEEDS. DENIES PAIN AT THIS TIME. DRESSING TO RIGHT FLANK DRY AND INTACT AND NO SHADOWING NOTED. PT IS STABLE AT THIS TIME. EMMIE WEN
--- NOTE | 2017-03-12 20:00 | NUR ---
RESTING IN BED. HEP LOCK INTACT TO RIGHT HAND; SITE ASYMPTOMATIC. BANDAID INTACT TO RIGHT SIDE OF BACK. PT. VOICES NO C/O AT THIS TIME. NO DISTRESS NOTED. CALL LIGHT WITHIN REACH.
--- NOTE | 2017-03-12 21:58 | NUR ---
MEDICATED WITH NORCO FOR C/O RIGHT FLANK PAIN.
[2017-03-13] VITALS: BP 102/62
--- NOTE | 2017-03-13 02:00 | NUR ---
RESTING IN BED WITH EYES CLOSED. NORCO GIVEN EARLIER APPARENTLY EFFECTIVE.
[2017-03-13 04:00] VITALS: BP 106/68
--- NOTE | 2017-03-13 05:15 | NUR ---
Hep Lock discontinued in right arm. Site symptomatic,edema. Pressure applied. Sterile dressing applied. IV started right forearm with #24 angiocath after 2 attempts. The IV site was prepped with Chloraprep. Heparin lock attached. Sterile dressing applied. Patient tolerated precedure well. Procedure performed according to [facility] policy & procedure. LADONNA HARGROVE
--- NOTE | 2017-03-13 05:41 | NUR ---
MEDICATED WITH ATIVAN PER PT'S REQUEST FOR ANXIETY.
[2017-03-13 06:45] LABS: BASO # 0.1 10*3/uL (0.0-0.1); BASO % 0.4 % (0.0-1.0); EOS # 0.2 10*3/uL (0.0-0.4); EOS % 1.5 % (1.0-4.0); HEMATOCRIT 31.7 % (37.0-47.0); HEMOGLOBIN 10.3 g/dl (12.0-16.0); LYMPH # 3.4 10*3/uL (1.3-4.4); MEAN CELL VOLUME 88.5 fl (81.0-99.0); MEAN CORPUSCULAR HGB 28.8 pg (27.0-31.0); MEAN CORPUSCULAR HGB CONC 32.5 g/dl (33.0-37.0); MEAN PLATELET VOLUME 9.4 fl (9.6-12.3); MONO # 0.7 10*3/uL (0.1-1.0); MONO % 5.6 % (3.0-9.0); NEUT # 7.4 10*3/uL (2.3-7.9); PLATELET COUNT AUTOMATED 439 10*3/uL (130-400); RED BLOOD COUNT 3.58 10*6/uL (4.10-5.10); RED CELL DISTRI WIDTH 14.3 % (0-14.5); WHITE BLOOD COUNT 11.8 10*3/uL (4.8-10.8)
[2017-03-13 07:12] LABS: ALBUMIN 2.4 gm/dl (3.1-4.5); BUN 12 mg/dl (7-24); CHLORIDE 103 mmol/L (98-107); MAGNESIUM 2.1 mg/dL (1.5-2.1); POTASSIUM 3.7 mmol/L (3.5-5.1); SGOT/AST 12 IU/L (3-35); SGPT/ALT 24 U/L (12-78); SODIUM 139 mmol/L (136-145); TOTAL PROTEIN 7.1 gm/dL (6.4-8.2)
[2017-03-13 07:13] LABS: ALKALINE PHOSPHATASE 97 U/L (45-117); CREATININE 0.67 mg/dL (0.55-1.02)
--- NOTE | 2017-03-13 07:18 | NUR ---
24 HR chart check completed.
[2017-03-13 08:00] VITALS: BP 126/67
--- NOTE | 2017-03-13 09:00 | NUR ---
case maangement visits with patient, patient denies any home needs
[2017-03-13] MEDS ORDERED: CIPRO500 MG PO (13:07)
[2017-03-13] MEDS ORDERED: VITAMIN D31000 UNI1 PO (14:11)
--- NOTE | 2017-03-13 15:02 | NUR ---
Discharge instructions reviewed with patient/family. Patient receptive and verbalizes understanding. Follow-up care arranged. Written instructions given to patient/family.HEPLOCK REMOVED. EMMIE WEN
== END 2017-03-13 15:02 | disposition home or self-care (01) | DRG 871 ==
LOC: ED 20:31 → EDHOLD 23:40 → 5E 23:40
PROVIDERS: Emergency Medicine; Emergency Medicine Emergency Medical Services; Hospitalist; Internal Medicine; Physician Assistant; ADMIT Internal Medicine
PROC: 0T903ZZ Drainage of Right Kidney, Percutaneous Approach (ICD-10-PCS; principal; 2017-03-08)
DX: A41.9 Sepsis, unspecified organism (principal); N17.0 Acute kidney failure with tubular necrosis; E43 Unspecified severe protein-calorie malnutrition; N15.1 Renal and perinephric abscess; N12 Tubulo-interstitial nephritis, not specified as acute or chronic; N39.0 Urinary tract infection, site not specified; D64.9 Anemia, unspecified; R73.9 Hyperglycemia, unspecified; E55.9 Vitamin D deficiency, unspecified; M54.5 Low back pain; F90.9 Attention-deficit hyperactivity disorder, unspecified type; G25.81 Restless legs syndrome; M79.7 Fibromyalgia; R65.20 Severe sepsis without septic shock; Z88.8 Allergy status to other drugs, medicaments and biological substances; Z98.51 Tubal ligation status; Z87.891 Personal history of nicotine dependence; Z82.49 Family history of ischemic heart disease and other diseases of the circulatory system; Z83.3 Family history of diabetes mellitus; Z68.38 Body mass index [BMI] 38.0-38.9, adult

== ENCOUNTER → 2017-05-06 | Outpatient (CLI) | payer BC ==
[~2017-05-06] MED LIST changes: +CIPRO500 MG PO; +VITAMIN D31000 UNI1 PO
== END | disposition home or self-care (01) ==
LOC: CT 12:51
DX: N15.1 Renal and perinephric abscess (principal); K59.00 Constipation, unspecified

== ENCOUNTER → 2021-04-02 | Outpatient (CLI) | payer OTHER | END | disposition home or self-care (01) | LOC: COVID19 16:02 | PROVIDERS: ATTEND Internal Medicine | DX: Z11.52 Encounter for screening for COVID-19 (principal) ==

== ENCOUNTER → 2021-07-17 | Outpatient (CLI) | payer OTHER | END | disposition home or self-care (01) | LOC: COVID19 15:01 | PROVIDERS: ATTEND Family Medicine | DX: Z20.822 Contact with and (suspected) exposure to COVID-19 (principal) ==

== ENCOUNTER 2022-05-28 18:40 | Emergency (ER) | payer BC ==
[~2022-05-28] VITALS: Wt 96.6 kg
[2022-05-28 21:17] LABS: BASO # 0.1 10*3/uL (0.0-0.1); EOS # 0.2 10*3/uL (0.0-0.4); EOS % 2.2 % (1.0-4.0); HEMATOCRIT 37.7 % (37.0-47.0); LYMPH # 2.4 10*3/uL (1.3-4.4); LYMPH % 26.3 % (27.0-41.0); MEAN CELL VOLUME 86.9 fl (81.0-99.0); MEAN CORPUSCULAR HGB 27.9 pg (27.0-31.0); MEAN CORPUSCULAR HGB CONC 32.1 g/dl (33.0-37.0); MEAN PLATELET VOLUME 9.6 fl (9.6-12.3); MONO # 0.8 10*3/uL (0.1-1.0); MONO % 9.4 % (3.0-9.0); NEUT # 5.4 10*3/uL (2.3-7.9); NEUT % 60.7 % (47.0-73.0); PLATELET COUNT AUTOMATED 344 10*3/uL (130-400); RED BLOOD COUNT 4.34 10*6/uL (4.10-5.10); RED CELL DISTRI WIDTH 14.7 % (0-14.5)
[2022-05-28 21:18] VITALS: BP 109/52
[2022-05-28 21:33] LABS: ALKALINE PHOSPHATASE 111 U/L (46-116); BUN 11 mg/dl (9-23); CHLORIDE 105 mmol/L (98-107); SGPT/ALT 39 U/L (10-49); TOTAL PROTEIN 7.2 gm/dL (6.0-8.0)
[2022-05-28] MEDS ORDERED: PROVENTIL HFA6.7 GM INH ×3 (21:53→22:14)
[2022-05-28] MEDS ORDERED: PREDNISONE20 M1 PO ×3 (21:53→22:14)
== END 2022-05-28 22:06 | disposition home or self-care (01) ==
LOC: ED 18:40
PROVIDERS: Physician Assistant
DX: U07.1 COVID-19 (principal); Z88.8 Allergy status to other drugs, medicaments and biological substances; Z87.442 Personal history of urinary calculi; Z98.890 Other specified postprocedural states; Z98.51 Tubal ligation status; Z87.891 Personal history of nicotine dependence